=== PATIENT | male | born 2000 | race Two or more races ===

== ENCOUNTER 2024-01-29 | Emergency (ER) | payer OTHER ==
[~2024-01-29] VITALS: Ht 177.8 cm; Wt 59.6 kg
[2024-01-29 00:38] VITALS: BP 140/79; PULSE 81; RESP 16; TEMP 98.9; O2SAT 97
[2024-01-29] MEDS: KETOROLAC TROMETH 60MG/2ML VIAL IM ONE (00:46)
--- NOTE | 2024-01-29 00:52 | DVH ---
INDICATION: Injury COMPARISON: None TECHNIQUE: 2 views of the lumbar spine were obtained. FINDINGS: The lumbar vertebral alignment is normal. The intervertebral disc spaces are well-maintained. No significant facet arthropathy is noted. No acute fracture, vertebral compression deformity or aggressive osseous lesions. The paravertebral soft tissues are grossly unremarkable. IMPRESSION: 1. No acute fracture.
[2024-01-29] MEDS ORDERED: ACET500T58 PO (00:59)
[2024-01-29] MEDS ORDERED: IBUP-1455 PO (00:59)
--- NOTE | 2024-01-29 01:01 | ED.PDOC ---
Back pain HPI HPI Comments This patient is an otherwise healthy 23-year-old male who arrives to the ED today for evaluation of low back pain status post picking up a 5 gal heavy bucket earlier this evening. Patient was moving some items in his garage when he picked up a bucket and felt a pop in his back. Patient denies any history of low back pain. Patient is able to ambulate. Patient denies any saddle paresthesia. Vital signs were stable on arrival. Chief Complaint: Back Pain Time Seen by MD: 00:05 Reviewed Notes: Nurses Notes Allergies: Coded Allergies: No Known Drug Allergy (Verified Allergy, Unknown, 01/29/24) Information Source: Patient, Friend Mode of Arrival: Ambulatory Timing: Hours Duration: Since onset Location of Back pain: (B) Lower back Severity: Moderate Prehospital treatment: None Quality: Aching, Sharp Onset: Lifing Circumstance: Other (Working at home) History of: None Modifying Factors: Nothing Past Medical History PAST MEDICAL HISTORY: Denies Surgical History: Denies all surgeries Family History Family History: Reviewed,noncontributory to illness, No family hx of Cancer, No family hx of DM, No family hx of Heart lorenzo, No family hx of HTN, No family hx ofKidney lorenzo, No family hx of Liver lorenzo, No family hx of Lung lorenzo, No family hx of Stroke Social History Smoker: Non-Smoker Alcohol: Denies ETOH Use Drugs: Denies Drug Use Lives In: Home Constitutional: denies: chills, diaphoresis, fatigue, fever, malaise, sweats, weakness, others EENTM: denies: blurred vision, double vision, ear bleeding, ear discharge, ear drainage, ear pain, ear ringing, eye pain, eye redness, hearing loss, mouth pain, mouth swelling, nasal discharge, nose bleeding, nose congestion, nose pain, photophobia, tearing, throat pain, throat swelling, voice changes, others Respiratory: denies: cough, hemoptysis, orthopnea, SOB at rest, shortness of breath, SOB with excertion, stridor, wheezing, others Cardiovascular: denies: chest pain, dizzy spells, diaphoresis, Dyspnea on exertion, edema, irregular heart beat, left arm pain, lightheadedness, palpitations, PND, syncope, others Gastrointestinal: denies: abdomen distended, abdominal pain, blood streaked bowels, constipated, diarrhea, dysphagia, difficulty swallowing, hematemesis, melena, nausea, poor appetite, poor fluid intake, rectal bleeding, rectal pain, vomiting, others Genitourinary: denies: burning, dysuria, flank pain, frequency, hematuria, incontinence, penile discharge, penile sore, pain, testicle pain, testicle swelling, urgency, others Neurological: denies: dizziness, fainting, headache, left sided numbness, left sided weakness, numbness, paresthesia, pre-existing deficit, right sided numbness, right sided weakness, seizure, speech problems, tingling, tremors, weakness, others Musculoskeletal: reports: back pain; denies: gout, joint pain, joint swelling, muscle pain, muscle stiffness, neck pain, others Integumetry: denies: bruises, change in color, change in hair/nails, dryness, laceration, lesions, lumps, rash, wounds, others Allergic/Immunocompromised: denies: Difficulty Healing, Frequent Infections, Hives, Itching, others Hematologic/Lymphatic: denies: anemia, blood clots, easy bleeding, easy bruising, swollen glands, others Endocrine: denies: excessive hunger, excessive sweating, excessive thirst, excessive urination, flushing, intolerance to cold, intolerance to heat, unexplained weight gain, unexplained weight loss, others Psychiatric: denies: anxiety, bipolar disorder, depression, hopeless, panic disorder, schizophrenia, sleepless, suicidal, others Physical Exam General Appearance: Moderate Distress (Moderate distress due to low back pain concerns.), Normal HEENT: Normal ENT Inspection, Pharynx Normal, TMs Normal Neck: Full Range of Motion, Non-Tender, Normal, Normal Inspection Respiratory: Chest Non-Tender, Lungs Clear, No Accessory Muscle Use, No Re spiratory Distress, Normal Breath Sounds Cardiovascular: No Edema, No JVD, No Murmur, No Gallop, Normal Peripheral Pulses, Regular Rate/Rhythm Breast Exam: Deferred Gastrointestinal: No Organomegaly, Non Tender, No Pulsatile Mass, Normal Bowel Sounds, Soft Genitalia: Deferred Pelvic: Deferred Rectal: Deferred Extremities: No calf tenderness, Normal capillary refill, Normal inspection, Normal range of motion, Non-tender, No pedal edema Musculoskeletal : Location: Bilateral Extremity Location: Back (Diffuse bilateral lumbar tenderness to palpation throughout. Moderate hypertonicity secretions. No step-offs noted. Patient denies any saddle paresthesia. Bilateral distal neurovascular intact.) Apperance: Normal Neurologic: Alert, outpatient facility physical therapist II-XII nml as Tested, No Motor Deficits, Normal Affect, Normal Mood, No Sensory Deficits Cerebellar Function: Normal Reflexes: Normal Skin: Dry, Normal Color, Warm Lymphatic: No Adenopathy Was a procedure done? Was a procedure done?: No Back Pain Differential Dx Differential Diagnosis: Other (Lumbar vertebrae fracture, low back strain) X-Ray, Labs, Meds, VS Vital Signs Date Time Temp Pulse Resp B/P (MAP) Pulse Ox O2 Delivery O2 Flow Rate FiO2 01/29/24 00:41 Room Air* 0 21 01/29/24 00:38 98.9 81 16 140/79 (99) 97 98.9 01/29/24 00:20 98.9 81 16 140/79 (99) 97 Current Medications Medications (Trade) Dose Ordered Sig/Court Route Start Time Stop Time Status Last Admin Ketorolac Tromethamine (Toradol Injection) 30 mg ONCE ONCE IM 01/29/24 00:30 01/29/24 00:31 DC 01/29/24 00:46 X-Ray, Labs, Meds, VS Comment All studies performed the ED were evaluated by me personally. Lumbar spine series was unremarkable for any acute fractures. Patient appears to have strained his low back. Advised patient utilize medication as directed as needed as well as ice therapy. If symptoms continue for more than a week, patient will need to follow up with the primary care provider for continued evaluation and medication management. Time of 1ST Reevaluation: 00:58 Reevaluation 1ST: Improved Consultation: PCP Patient Education/Counseling: Diagnosis, Treatment Family Education/Counseling: Diagnosis, Treatment Departure 1 Departure Time of Disposition: 00:58 Impression: Primary Impression: Low back strain Disposition: 01 HOME / SELF CARE / HOMELESS Condition: Stable Additional Instructions: Advise utilizing medication as needed for symptomatic relief as well as ice therapy. If symptoms do not resolve in the next 5-10 days, patient will need to follow up with the primary care provider for continued evaluation and medication management. e-Prescriptions Acetaminophen (Acetaminophen) 500 Mg Tab 500 MG PO Q4HP PRN, #30 TAB Prov: NAGI JOHNSON PAC 01/29/24 Ibuprofen Micronized (Ibuprofen) 800 Mg Tab 800 MG PO Q8HP PRN, #20 TAB Prov: NAGI JOHNSON PAC 01/29/24 Discharged With: Self, Friend Critical Care Note Critical Care Time?: No Stability Stability form required: No Heart Score Heart Score: Heart Score Response (Comments) Value History N/A 0 EKG N/A 0 Age N/A 0 Risk Factors N/A 0 Troponin N/A 0 Total 0 NAGI JOHNSON PAC Jan 29, 2024 01:01
== END 2024-01-29 02:08 | disposition home or self-care (01) ==
LOC: ER 00:01
DX: S39.012A Strain of muscle, fascia and tendon of lower back, initial encounter (principal); X50.0XXA Overexertion from strenuous movement or load, initial encounter; Y93.89 Activity, other specified; Y92.89 Other specified places as the place of occurrence of the external cause; Y99.8 Other external cause status
CPT/HCPCS: 72100; 96372; 99283; J1885